=== PATIENT | female | born 1975 | race Hispanic/Latino ===

== ENCOUNTER 2025-01-10 22:28 | Emergency (ER) | payer OTHER, SELFPAY ==
[2025-01-10 22:32] VITALS: BP 131/93
[2025-01-10 22:34] LABS: Glucose - Point of Care 148 mg/dl (70-99)
[2025-01-10 22:57] LABS: % Basophils 0.4 % (0-2); % Eosinophils 1.1 % (0-6); % Immature Granulocytes 0.3 % (0-0.5); % Lymphocytes 25.8 % (20.5-51.1); % Monocytes 5.4 % (1.7-9.3); Absolute Basophils 0.1 10^3/uL (0-0.2); Absolute Eosinophils 0.1 10^3/uL (0-0.7); Absolute Lymphocytes 3.3 10^3/uL (1.2-3.4); Absolute Monocytes 0.7 10^3/uL (0.1-0.6); Absolute Neutrophils 8.5 10^3/uL (1.4-6.5); Hematocrit 39.2 % (37.0-47.0); Hemoglobin 13.2 g/dL (12.0-16.0); Mean Corp Hgb Conc. 33.7 g/dL (33.0-37.0); Mean Corpuscular Hgb 29.2 pg (27.0-31.0); Mean Corpuscular Volume 86.7 fL (81.0-99.0); Mean Platelet Volume 9.1 fL (7.4-10.4); Nucleated Red Blood Cells % 0 %; Platelet Count 307 10^3/uL (130-400); Red Blood Cell Count 4.52 10^6/uL (4.20-5.40); Red Cell Dist. Width 12.3 % (11.5-14.5); White Blood Cell Count 12.6 10^3/uL (4.8-10.8)
[2025-01-10 23:14] LABS: ALT (SGPT) 32 U/L (0-35); AST (SGOT) 25 U/L (14-36); Albumin 4.1 g/dl (3.5-5.0); Alkaline Phosphatase 120 U/L (38-126); Blood Urea Nitrogen 16 mg/dl (7-17); Calcium 8.4 mg/dl (8.4-10.2); Carbon Dioxide 24 mmol/L (22-30); Chloride 113 mmol/L (98-107); Glucose 115 mg/dl (70-99); Potassium 4.1 mmol/L (3.5-5.1); Sodium 144 mmol/L (135-145); Total Bilirubin 0.3 mg/dl (0.2-1.3); Total Protein 7.4 g/dl (6.3-8.2); eGFR > 60.00
[2025-01-10 23:19] LABS: Troponin I < 0.012 ng/ml
[2025-01-11 00:23] VITALS: BP 103/58
[2025-01-11 01:00] VITALS: BP 105/72
[2025-01-11 01:13] VITALS: BMI 30.3
--- NOTE | 2025-01-11 01:27 | ED.GENMED ---
History of Present Illness
General
Chief Complaint: Chest Pain
Source: patient and previous hospital records (ED visit April 2023, February 2023. Complaining of shortness of breath. Unremarkable workup during both ED visits.)
Exam Limitations: none
Time Seen by Provider: 01/11/25 01:12
Nursing documentation reviewed up to this point in time: agreed with
History of Present Illness
History of Present Illness:
This is a 49-year-old woman with history of WPW, MS. She presents with complaints of substernal chest discomfort accompanied with a sense of feeling hot, generalized weakness while driving to her mother's house. She denies palpitations or sense
that her heart was beating rapidly. She denies diaphoresis, no shortness of breath, no neck nor back pain, no numbness nor headache. Patient states she rubbed her chest and this seemed to help her chest pain which eventually resolved within a few
minutes.
She was also concerned with an episode of brief momentary pain left maxillary cheek region which occurred yesterday. No other associated symptoms and has not recurred.
She denies difficulty with ambulation. No exertional chest discomfort, no dyspnea on exertion. She denies leg pain or swelling.
2 years ago she had been suffering with some ongoing dyspnea. She underwent unremarkable stress echo April 2023.
She has not followed up with cardiology since then.
She follows every 6 months with neurologist at [facility]. Contemplating initiation of medication for MS.
She is menopausal for the past 6 to 7 years.
She takes no medicines on a daily basis.
Past History
Past History
ED Past Medical History: Other (WPW; MS)
ED Past Surgical History: Cholecystectomy and Gynecological (Tubal ligation)
Social History
Tobacco: Non-smoker
Alcohol: None
Drug: None
Personal:
Living: with family
Employment: Employed
Family History
Family History: Negative CAD or Sudden
Phy Exam
Physical Exam
Physical Exam:
GENERAL: 49-year-old woman appears her stated age, bright and alert, pleasant, appears in no acute distress. is accompanying.
EYE: pupils equal and reactive. Extraocular muscles intact. Anicteric
NECK: Supple, nontender, no meningismus, no significant adenopathy.
ENT: posterior pharynx is clear, oral mucosa is moist. TM clear b/l, nares have moderately boggy pale blue turbinates without rhinorrhea nor mucopus. No palpable sinus tenderness.
CARDIAC: Regular rate and rhythm. no murmur. No rub.
LUNGS: Clear breath sounds bilaterally, no acute respiratory distress, no wheezes/rales/rhonchi
ABDOMEN: Soft, nondistended, without focal tenderness, normoactive BS.
NEUROLOGICAL: Alert and oriented x3, no focal neuro deficits. Motor strength is 5/5 bilaterally. Gross sensation is intact.
SKIN: Warm and dry, normal color, skin intact. No rash.
MUSCULOSKELETAL: No C/C/E. peripheral pulses are full and equal b/l. No palpable tenderness.
PSYCH: Normal and appropriate interaction.
Scores
Heart Score for Chest Pain Patients
STEMI patient?: No
History: Slightly or Non-Suspicious
ECG: Normal
Age: >45 - <65 years
Risk Factors: No Risk Factors
Troponin: </= Normal Limit
Heart Score for Chest Pain Patients: 1
Heart Score Risk: 2.5% MACE over next 6 weeks
Course
Orders/Labs/Results
Orders:
Orders
01/10/25 22:37
Electrocardiogram (*1) Urgent
Reason for Study: Chest Pain
Cardiac Monitoring- Treatment ONCE
EKG- Treatment ONCE
IV Insert/Care/Rem.- Treatment PRN
O2 Therapy [RESP] Urgent
Titrate/Wean O2 to maintain O2 sat greater than (%): 90
Special Instructions: Maintain sats >/=90%
Pulse Ox/spot Check [RESP] Urgent
Quantity: 1
Special Instructions: ON ROOM AIR
01/10/25 22:47
Complete Blood Count/With Diff Urgent
Comprehensive Metabolic Panel Urgent
Troponin I Urgent
01/11/25 01:28
Troponin I Urgent
Abnormal Lab Results
01/10/25 01/10/25
22:33 22:47
WBC 12.6 H 10^3/uL
(4.8-10.8)
Absolute Neuts (auto) 8.5 H 10^3/uL
(1.4-6.5)
Absolute Monos (auto) 0.7 H 10^3/uL
(0.1-0.6)
Chloride 113 H mmol/L
(98-107)
Glucose 115 H mg/dl
(70-99)
POC Glucose 148 H mg/dl
(70-99)
01/10/25 22:47
01/10/25 22:47
Vital Signs
Initial and Last Documented VS:
Initial Vital Signs
Temp Pulse Resp BP Pulse Ox
98.2 F 80 16 131/93 97
01/10/25 22:32 01/10/25 22:32 01/10/25 22:32 01/10/25 22:32 01/10/25 22:32
Last Documented Vital Signs
Temp Pulse Resp BP Pulse Ox
98.2 F 66 17 105/72 97
01/10/25 22:32 01/11/25 01:00 01/11/25 01:00 01/11/25 01:00 01/11/25 01:38
MDM/Problems Addressed
Differential Diagnosis Includes:
Concern for ACS, arrhythmia, GERD, dehydration, vasovagal episode, MS flare.
Nothing in history nor exam concerning for CVA.
Patient notes brief episode of discomfort left maxillary cheek region 1 day ago and exam notable for mild allergic rhinitis but nothing to suggest acute sinusitis. Reassuring that she has had no recurrence of symptoms. Likely mild brief sinus
pressure in nature.
Exam is overall benign. No focal neurodeficits. No current chest pain. Hemodynamically stable. Afebrile.
EKG shows normal sinus rhythm, delta wave consistent with WPW. No acute ST-T wave abnormalities and unchanged from previous EKG 2022.
Thus far monitor shows normal sinus rhythm without ectopy/arrhythmia.
Labs show mildly elevated white blood cell count of 12.6 otherwise unremarkable. Troponin is negative.
Will plan to repeat troponin now.
Chronic conditions affecting care: Neurological disorder and Other ( WPW)
*Pulse Oximetry
SaO2: 97
Oxygen Mode of Delivery: Room air
Patient hypoxic: no
*EKG
Interpreted by ED Provider?: Yes
Comparison EKG: no changes (Unchanged from previous April 2023)
Rate: normal
Rhythm: sinus
[place]: left axis deviation
QRS Pattern: other (WPW)
Ischemia: no ischemia
*Epic Manager Interpretation
Rate: normal
Interpretation: normal
Rhythm: sinus
*Critical Care Note
Total Time (30-74mins, 75-104mins- exclusive of procedures): Not Applicable
Update Note
Update Note:
02:15
Repeat troponin remains negative.
Monitor continues to show normal sinus rhythm without ectopy nor arrhythmia.
Patient remains asymptomatic.
Will discharge to home with recommendations for follow-up with his or explosive ordnance handler, Dr. Hameed/[facility].
Discussed importance of staying well-hydrated on a daily basis.
Follow-up with neurologist at [facility] as well.
Return precautions discussed.
ED Attending Note
-
Portions of this chart may have been created with voice recognition software.� Occasional wrong word or��sound alike� substitutions may have occurred due to the inherent limitations of voice recognition software.
Discharge Plan
Departure
Patient Disposition: Home (Routine Discharge)
Date of Disposition: 01/11/25
Time of Disposition: 02:15
Patient with high blood pressure during this ER visit?: No
Condition: Good
Discharge Problem:
Acute nonspecific chest pain with low risk of coronary artery disease
Instructions: Chest Pain DCA Follow Up
Prescriptions:
No Action
No Current Medications
0
Referrals:
UNKNOWN - PT DOES,NOT KNOW [Family Provider]
Interventions
Interventions:
*Risk Screen - Suicide Last Done: 01/10/25 22:32
*General Assessment Last Done: 01/10/25 22:32
*Neglect/Abuse Screening Last Done: 01/10/25 22:51
*ED- Fall Risk Assessment Last Done: 01/11/25 01:14
*ED COVID-19 Vaccine History Last Done: 01/11/25 01:14
ED- Cardiac Assessment Last Done: 01/11/25 01:14
Discharge Date and Time
Print Language: INDONESIAN
[2025-01-11 02:00] VITALS: BP 112/78
[2025-01-11 02:13] LABS: Troponin I < 0.012 ng/ml
== END 2025-01-11 02:36 | disposition home or self-care (01) ==
LOC: EMR 22:28
PROVIDERS: Emergency Medicine; EMERGENCY PHYSICIAN Emergency Medicine
DX: R07.89 Other chest pain (principal); R53.1 Weakness; M79.602 Pain in left arm; M54.9 Dorsalgia, unspecified; R51.9 Headache, unspecified; R11.0 Nausea; H53.8 Other visual disturbances; I45.6 Pre-excitation syndrome; G35 Multiple sclerosis; Z90.49 Acquired absence of other specified parts of digestive tract
CPT/HCPCS: 99283; 94760; 80053; 82962; 84484; 85025; 93005